=== PATIENT | female | born 1990 | race Caucasian/White ===

== ENCOUNTER 2019-06-21 22:25 | Emergency (ER) | payer MEDICARE, OTHER ==
[~2019-06-21] VITALS: Ht 162.6 cm; Wt 90.7 kg
[2019-06-21 22:56] VITALS: BP 115/74
[2019-06-21] MEDS ORDERED: HYDROcodone/APAP 5 MG/325 MG (LORTAB) TAB PO ONE (23:45)
--- NOTE | 2019-06-22 01:00 | NUR ---
REPORT RECIEVED FROM OTTONIEL DYSON. ASSUMED PRIMARY NURSE ROLE.
[2019-06-22] MEDS ORDERED: ACHD5005 PO (03:03)
--- NOTE | 2019-06-22 03:03 | ED Fall/Injury ---
General Chief Complaint: Lower Extremity Stated Complaint: FALL,BOTH FEET INJURED Nursing Triage Note: PT FELL ON STEPS AT HOME. PT STATES SHE FELL ONTO HER KNEES. PT REPORTS SHE DID NOT HIT HER HEAD. PT REPORTS BILAT ANKLE AND FOOT PAIN. Source: patient Exam Limitations: no limitations History of Present Illness Date Seen by Provider: Jun 21, 2019 Time Seen by Provider: 23:35 Initial Comments This 28-year-old young lady presents to the emergency room with bilateral foot pain after falling while walking down some stairs this evening. She believes she inverted of both of her ankles. She is not exactly sure what caused the fall. She fell to her knees but denies any significant knee pain at this time. She was able to independently walk into the emergency room although this caused significant pain in her feet. The dorsum of the right foot is swollen and quite tender. She has pain in the mid foot and ankle on the left. She has had prior surgery on the right foot. She is also tachycardic and febrile. She was seen in urgent care for these symptoms and was diagnosed with pneumonia. No chest x- ray was performed. She has associated symptoms of copious postnasal drainage, runny nose, and cough. She was started on antibiotic therapy from the urgent care. She has been ill for the past 2 days. Allergies and Home Medications Allergies Coded Allergies: Penicillins (Verified Allergy, Unknown, 06/21/19) Home Medications Hydrocodone Bit/Acetaminophen 1 Tab Tab, 1 EACH PO Q4-6HR PRN for PAIN-MODERATE Prescribed by: VIRGINIA GOODMAN on 06/22/19 0303 Patient Home Medication List Home Medication List Reviewed: Yes Review of Systems Review of Systems Constitutional: see HPI Eyes: No Symptoms Reported Ears, Nose, Mouth, Throat: no symptoms reported Respiratory: no symptoms reported Cardiovascular: no symptoms reported Gastrointestinal: no symptoms reported Genitourinary: no symptoms reported : No Musculoskeletal: see HPI Skin: no symptoms reported Psychiatric/Neurological: No Symptoms Reported Past Qeceytk-Qxloiz-Pwmvhg Hx Past Med/Social Hx: Reviewed and Corrections made Patient Social History Alcohol Use: Denies Use Recreational Drug Use: No Smoking Status: Current Everyday Smoker Type Used: Cigars 2nd Hand Smoke Exposure: Yes Recent Foreign Travel: No Contact w/Someone Who Travel: No Recent Infectious Disease Expo: No Recent Hopitalizations: No Physical Abuse: No Sexual Abuse: No Mistreated: No Fear: No Seasonal Allergies Seasonal Allergies: Yes Past Medical History Surgeries: Yes (foot) Adenoidectomy, Appendectomy, Bowel Surgery (because of perforated bowel from colonoscopy), Gallbladder, Hysterectomy, Tonsillectomy Respiratory: No Cardiac: No 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 oz. kg; 34.00 BMI Method: General Appearance: WD/WN, no apparent distress HEENT: PERRL/EOMI, normal ENT inspection, pharynx normal Neck: normal inspection Cardiovascular: regular rate, rhythm, no edema, no murmur Respiratory: lungs clear, normal breath sounds, no respiratory distress, no accessory muscle use Gastrointestinal: non tender, soft Extremities: other (swelling with tenderness on the dorsum of the right mid foot. Scars from prior surgeries noted. No significant tenderness about the ankle. Capillary refill and sensation intact. There is tenderness inferior to the medial and lateral malleolus on the left. No significant swelling or erythema. Pedal pulse, capillary refill, and sensation intact.) Neurologic/Psychiatric: terminal carman II-XII nml as tested, no motor/sensory deficits, alert, normal mood/affect, oriented x 3 Skin: normal color, warm/dry Manuel Coma Score Best Eye Response: (4) Open Spontaneously Best Verbal Response: (5) Oriented Best Motor Response: (6) Obeys Commands Manuel Total: 15 Progress/Results/Core Measures Results/Orders My Orders Orders - VIRGINIA QUIROZ MD Hydrocodone/Apap 5/325 Tablet (Lortab 5 (06/21/19 23:45) Chest Pa/Lat (2 View) (06/22/19 00:01) Foot, Right, 3 View (06/22/19 00:01) Ankle, Left, 3 Views (06/22/19 00:01) Ct Extremity Lower Left Wo (06/22/19 01:28) Medications Given in ED Current Medications Medications Dose Ordered Sig/Gina Route Start Time Stop Time Status Last Admin Dose Admin Acetaminophen/ Hydrocodone Bitart 1 tab ONCE ONCE PO 06/21/19 23:45 06/21/19 23:46 DC 06/22/19 00:39 1 TAB Vital Signs/I&O 06/21/19 06/21/19 06/22/19 22:42 22:56 03:13 Temp 38.3 38.3 38.3 Pulse 128 121 121 Resp B/P (MAP) 115/74 (88) 115/74 (88) 115/74 (88) Pulse Ox 98 98 O2 Delivery Room Air Room Air Room Air Blood Pressure Mean: 88 POS Progress Progress Note : Progress Note Chest x-ray revealed no consolidation or infiltrate. Fever and respiratory symptoms are likely due to viral illness. Supportive care was recommended. X- ray of the right foot revealed no fractures or dislocations. X-ray of the left foot had questionable findings. Follow-up with CT was pursued. There is a small avulsion fracture of the cuboid. CT otherwise did not show any major abnormalities. Ambulation with a boot and crutches was recommended until follow-up with an orthopedist. Hydrocodone was given for pain. Diagnostic Imaging Diagonstic Imaging: Xray Plain Films/CT/US/NM/MRI: chest Comments Two-view chest x-ray viewed by me. Report not yet available. No acute abnormalities appreciated. Diagonstic Imaging: Xray Plain Films/CT/US/NM/MRI: other (right foot) Comments X-ray of the right foot showed postoperative changes. There are no acute fractures or dislocations in the area of her pain. Report pending. Diagonstic Imaging: Xray Plain Films/CT/US/NM/MRI: ankle Comments X-ray of the left ankle shows questionable bone fragments. Films were sent to [facility] for further interpretation. A cleft was noted in the medial and posterior talus and there is questionable avulsion injury at the posterior talocalcaneal articulation. Findings were suspicious for ankle fracture. CT follow-up was recommended. Diagonstic Imaging: CT Plain Films/CT/US/NM/MRI: ankle Comments CT of the left ankle was viewed by me and [facility] report reviewed. There is prominent os trigonum. No ankle fracture was noted. There is a small bone fragment adjacent to the cuboid at the calcaneal cuboid articulation which could be an avulsion fracture injury. This didn't correlate with an area of tenderness. Departure Impression Primary Impression: Cuboid fracture Qualified Codes: S92.214A - Nondisplaced fracture of cuboid bone of right foot, initial encounter for closed fracture Additional Impressions: Contusion of right foot Qualified Codes: S90.31XA - Contusion of right foot, initial encounter Flu-like symptoms Disposition: HOME, SELF-CARE Condition: Improved Departure-Patient Inst. Decision time for Depature: 02:59 Referrals: NO,LOCAL PHYSICIAN (PCP/Family) Primary Care Physician Patient Instructions: Contusion (DC), How to Use Crutches Add. Discharge Instructions: There is a suspected tiny avulsion fracture of the cuboid bone in the left foot. Avoid full weightbearing on the left foot and wear the boot is much as pos sible. Ambulate with crutches. There were no apparent fractures in the right foot. This injury appears to be a contusion (tissue bruising). Treat swollen and painful areas with elevation, rest, and 20 minute intervals of icing. Compression with Arron bandages might also be helpful. You may use Tylenol (acetaminophen) up to 1000 mg every 6 hours as needed for minor pain. For more severe pain use hydrocodone as prescribed. Follow-up with an orthopedic provider as soon as possible. Return to care if you have worsening symptoms. All discharge instructions reviewed with patient and/or family. Voiced understanding. Scripts Hydrocodone Bit/Acetaminophen (Hydrocodone/Acetaminophen 5/325mg Tablet) 1 Tab Tab 1 EACH PO Q4-6HR PRN for PAIN-MODERATE MDD 10, #8 TAB Prov: VIRGINIA QUIROZ MD 06/22/19 VIRGINIA QUIROZ MD Jun 22, 2019 03:03 POS
[2019-06-22 03:13] VITALS: BP 115/74
--- NOTE | 2019-06-22 06:34 | Diagnostic Imaging Report ---
INDICATION: Fall. FINDINGS: Portable chest. The lungs are well-aerated and clear. The heart is not enlarged. No pulmonary edema or hilar adenopathy. No pneumothorax or pleural effusion. No bony abnormalities. IMPRESSION: Negative PA and lateral chest. Dictated by: Dictated on workstation # [id number]
--- NOTE | 2019-06-22 06:39 | Diagnostic Imaging Report ---
INDICATION: Fall. Right foot pain. FINDINGS: 3 views. No fractures or dislocations are demonstrated. There is moderate degenerative change along the 1st metatarsal tarsal joint. The MP joints are well preserved with good joint space. IMPRESSION: 1. No acute abnormalities demonstrated. 2. 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 Dictated by: Dictated on workstation # [id number]
--- NOTE | 2019-06-22 06:40 | Diagnostic Imaging Report ---
INDICATION: Fall. FINDINGS: 3 views. Left ankle shows mortise to be in good alignment. Articulating surfaces are smooth. No evidence of cortical fractures. No soft tissue swelling demonstrated. There is a prominent os trigonum. IMPRESSION: No acute abnormalities. Dictated by: Dictated on workstation # [id number]
--- NOTE | 2019-06-22 06:48 | Diagnostic Imaging Report ---
PROCEDURE: CT left lower extremity without contrast. TECHNIQUE: Multiple contiguous axial images were obtained through the left lower extremity without the use of intravenous contrast. Sagittal and coronal reformations were then performed. Auto Exposure Controls were utilized during the CT exam to meet ALARA standards for radiation dose reduction. INDICATION: Status post fall on steps at home. Ankle and foot pain. CORRELATION STUDY: Ankle radiographs 06/22/2019 FINDINGS: Distal tibia, fibula and talar dome intact. Ankle mortise maintained. Mildly prominent os trigonum is noted. Visualized subtalar joint appearing unremarkable. A benign-appearing sclerotic foci of the proximal cuboid bone. There is a very small bone fragment projecting off the lateral aspect of the cuboid at the calcaneal cuboidal junction. This may be reflective more of remote injury or nonacute finding. Small avulsion fracture is not excluded. The soft tissues appearing unremarkable. Incidental note is made of fixation hardware over the distal right leg. IMPRESSION: 1. Negative for acute fracture at the level of the ankle. Alignment anatomic. 2. Very small bone fragment from adjacent cuboid bone. This may be of no significance perhaps remote injury. Acute avulsion injuries not completely excluded. A preliminary report was provided by [facility]. Dictated by: Dictated on workstation # [id number]
== END 2019-06-22 03:16 | disposition home or self-care (01) ==
LOC: ER 22:29
DX: S92.211A Displaced fracture of cuboid bone of right foot, initial encounter for closed fracture (principal); S90.31XA Contusion of right foot, initial encounter; R09.89 Other specified symptoms and signs involving the circulatory and respiratory systems; F17.290 Nicotine dependence, other tobacco product, uncomplicated; Z90.49 Acquired absence of other specified parts of digestive tract; Z90.89 Acquired absence of other organs; Z90.710 Acquired absence of both cervix and uterus; Z88.0 Allergy status to penicillin; W10.9XXA Fall (on) (from) unspecified stairs and steps, initial encounter; Y92.009 Unspecified place in unspecified non-institutional (private) residence as the place of occurrence of the external cause
CPT/HCPCS: 71046; 73610; 73630; 73700